=== PATIENT | female | born 1940 | race Hispanic/Latino ===

== ENCOUNTER 2025-02-23 06:20 | Day surgery (SDC) | payer OTHER, MEDICARE ==
[~2025-02-23] VITALS: Ht 149.9 cm; Wt 56.2 kg
[2025-02-23] VITALS (10 sets, daily range): BP systolic 101–179; BP diastolic 45–75; PULSE 55–83; RESP 14–18; TEMP 97–97.3
[2025-02-23] MEDS: 0.9%NACL 1000ML 1,000 ML IV ONE (08:16)
[2025-02-23] MEDS ORDERED: FERS325 PO (08:21)
[2025-02-23] MEDS ORDERED: ALPR0.255 PO (08:21)
[2025-02-23] MEDS ORDERED: CLON0.1T PO (08:21)
[2025-02-23] MEDS ORDERED: SACU1TAB PO (08:21)
[2025-02-23] MEDS ORDERED: METF-446 PO (08:21)
[2025-02-23] MEDS ORDERED: FAMO20TA8 PO (08:21)
[2025-02-23] MEDS ORDERED: SITA100T12 PO (08:21)
[2025-02-23] MEDS ORDERED: DEXL60CA3 PO (08:21)
[2025-02-23] MEDS ORDERED: DICY20TA3 PO (08:21)
[2025-02-23] MEDS ORDERED: NITR100C PO (08:21)
== END 2025-02-23 10:04 | disposition home or self-care (01) ==
LOC: DAH 06:20
PROVIDERS: ATTEND Internal Medicine Gastroenterology
DX: R10.32 Left lower quadrant pain (principal); K62.1 Rectal polyp; R97.0 Elevated carcinoembryonic antigen [CEA]; F41.9 Anxiety disorder, unspecified; F32.A Depression, unspecified; I10 Essential (primary) hypertension; M81.0 Age-related osteoporosis without current pathological fracture; E11.9 Type 2 diabetes mellitus without complications; Z98.890 Other specified postprocedural states; R93.3 Abnormal findings on diagnostic imaging of other parts of digestive tract; K21.9 Gastro-esophageal reflux disease without esophagitis; K31.84 Gastroparesis; K76.0 Fatty (change of) liver, not elsewhere classified; K57.30 Diverticulosis of large intestine without perforation or abscess without bleeding; K64.0 First degree hemorrhoids; Z88.1 Allergy status to other antibiotic agents; I25.10 Atherosclerotic heart disease of native coronary artery without angina pectoris; Z79.84 Long term (current) use of oral hypoglycemic drugs; Z79.899 Other long term (current) drug therapy
CPT/HCPCS: 82948 ×2; 45380; J7030; J2704; A4620; A4215; A4223; A7002; A4222; A4221; A4663; A4606; J3490